=== PATIENT | female | born 2005 | race Caucasian/White ===

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

== ENCOUNTER 2024-08-20 14:06 | Emergency (ER) | payer OTHER ==
--- OUTSIDE RECORDS SUMMARY | 2024-08-20 14:09 | XMS REPORT | Continuity of Care Document ---
Author Name Unknown Address [address] [facility] [address] [place] [address] [facility] thconnect Address [address] [facility] [address] [place] [address] Care Team Providers Care Quality Control Name Role Phone [facility] Primary Care Physician UnavailSHANEKA Delgado Attending Clinician Unavailable Jina Bazzi CNM Attending Clinician JINA BAZZI Attending Clinician Rubens Escamilla Shaneka MARION Attending Clinician [phone] Doctor Unassigned, [place] Attending Clinician U Latasha Aquino MD Attending Clinician [phone] LATASHA LAMBERT Attending Clinician Dionne Jameson Attending Clinician + DIONNE PICKARD Attending Clinician Cecilia johnson Payers Payer Name Policy Type Policy Number Effective Date Expirati on Date Source Problems Condition Name Condition Details Condition Category Status Onset Date Resolution Date Last Treatment Date Treating Clinician Comments Source Flu vaccine refused Flu vaccine refused Disease Active 2023-08 00:00: 00 [facility] Allergies, Adverse Reactions, Alerts Allergy Name Allergy Type Status Severity Reaction(s) Onset Date Inactive Date Treating Clinician Comments Source NO KNOWN ALLERGIE S Drug Class Active [facility] Social History Social Habit Start Date Stop Date Quantity Comments Source Sexual orientation U [facility] Alcoholic beverage intake 2024-06-21 00:00:00 2024-06-21 00:00:00 Lifetime non-drinker (finding) [facility] Alcohol intake 2023-07-25 00:00:00 2023-07-25 00:00:00 Lifetime non-drinker (finding) [facility] Tobacco use and exposure 2023-07-03 00:00:00 2023-07-03 00:00:00 Smokeless tobacco non-user [facility] History of Social function 2023-07-03 00:00:00 2023-07-03 00:00:00 [facility] Sex assigned at 2005 00:00:00 2005 00:00:00 [facility] Smoking Status Start Date Stop Date Source Tobacco smoking consumption unknown [facility] Never smoked tobacco [facility] Medications Ordered Medication Name Filled Medication Name Start Date Stop Date Current Medication? Ordering Clinician Indication Dosage Frequency Signature (SIG) Comments Components Source norethindro ne (CRISTINA) 0.35 mg tablet 2023-08 00:00: 00 06-21 00:00 :00 No [id number] 1{tbl} TAKE 1 TABLET BY MOUTH EVERY DAY IN THE MORNING [facility] norethindro ne 0.35 mg tablet 03-26 00:00: 00 06-17 00:00 :00 No [id number] 1{tbl} Take 1 tablet by mouth in the morning. [facility] etonogestre L (NEXPLANON) implant 68 mg 2022-08 14:30: 00 07-25 14:00 :00 No [id number] 68mg [facility] Vital Signs Vital Name Observation Time Observation Value Comments S ed Systolic blood pressure 2024-06-21 13:38:00 121 mm[Hg] [facility] Diastolic blood pressure 2024-06-21 13:38:00 76 mm[Hg] [place] o [facility] Heart rate 2024-06-21 13:38:00 72 /min [facility] Body temperature 2024-06-21 13:38:00 36.61 [place] [facility] Respiratory rate 2024-06-21 13:38:00 17 /min [facility] Body height 2024-06-21 13:38:00 165.1 cm [facility] Body weight 2024-06-21 13:38:00 60.011 kg [facility] BMI 2024-06-21 13:38:00 22.02 kg/m2 [facility] Systolic blood pressure 2024-03-26 13:41:00 125 mm[Hg] [facility] Diastolic blood pressure 2024-03-26 13:41:00 82 mm[Hg] [facility] Heart rate 2024-03-26 13:41:00 78 /min [facility] Body temperature 2024-03-26 13:41:00 36.11 [place] [facility] Respiratory rate 2024-03-26 13:41:00 18 /min [facility] Body height 2024-03-26 13:41:00 165.1 cm [facility] Body weight 2024-03-26 13:41:00 57.425 kg [facility] BMI 2024-03-26 13:41:00 21.07 kg/m2 [facility] Systolic blood pressure 2023-07-25 13:31:00 114 mm[Hg] [facility] Diastolic blood pressure 2023-07-25 13:31:00 73 mm[Hg] [facility] Heart rate 2023-07-25 13:31:00 79 /min [facility] Body temperature 2023-07-25 13:31:00 36.78 [place] [facility] Body height 2023-07-25 13:31:00 165.1 cm [facility] Body weight 2023-07-25 13:31:00 52.708 kg [facility] BMI 2023-07-25 13:31:00 19.34 kg/m2 [facility] Body mass index (BMI) [Percentile] Per age and sex 2023-07-25 13:31:00 21.37 % [facility] Systolic blood pressure 2023-07-03 19:47:00 113 mm[Hg] [facility] Diastolic blood pressure 2023-07-03 19:47:00 77 mm[Hg] [facility] Heart rate 2023-07-03 19:47:00 89 /min [facility] Body temperature 2023-07-03 19:47:00 36.89 [place] [facility] Body height 2023-07-03 19:47:00 165.1 cm [facility] Body weight 2023-07-03 19:47:00 53.071 kg [facility] BMI 2023-07-03 19:47:00 19.47 kg/m2 [facility] Body mass index (BMI) [Percentile] Per age and sex 2023-07-03 19:47:00 23.26 % [facility] Procedures Procedure Date / Time Performed Performing Clinician Source CBC WITH DIFF 2024-03-26 14:49:00 Shaneka Escamilla [facility] PATIENT QUESTIONNAIRE 2023-07-28 06:01:00 Doctor Unassigned, [place] [facility] POCT TEST 2023-07-25 13:59:00 Latasha Anderson [facility] POCT TEST 2023-07-03 19:59:00 Dionne Monahan [facility] ASSIGNMENT OF BENEFITS 2023-07-03 19:21:13 Docto r Unassigned, [place] [facility] Encounters Start Date/Time End Date/Time Encounter Type Admission Type Attending Clinicians Care Facility Care Department Encounter ID Source 2024-06-21 08:15:00 2024-06-21 09:08:35 Office Visit Jina Bazzi [facility] TELEPHOTO INSTALLER [facility] [id number] [id number] [id number] [id number] [facility] 2024-06-21 08:15:00 2024-06-21 09:08:35 Outpatient R JINA BAZZI [facility] [id number] [facility] 2024-06-17 00:00:00 2024-06-17 11:16:12 Refill Shaneka Escamilla [facility] TELEPHOTO INSTALLER [facility] MATERNAL & CHILD [facility]ALTH [facility] [id number] [id number] [id number] [id number] [facility] 2024-03-27 00:00:00 2024-03-27 14:46:31 Telephone Shaneka Escamilla [facility] TELEPHOTO INSTALLER [facility] MATERNAL & CHILD [facility] [id number] [id number] [id number] [id number] [facility] 2024-03-26 08:30:00 2024-03-26 09:49:35 Outpatient R SHANEKA ESCAMILLA [facility] [id number] [facility] 2024-03-26 08:30:00 2024-03-26 09:49:35 Office Visit Shaneka Escamilla [facility] TELEPHOTO INSTALLER [facility] MATERNAL & CHILD [facility] [id number] [id number] [id number] [id number] [facility] 2023-07-28 00:00:00 2023-07-28 00:00:00 Orders Only Doctor Unassigned, [place] [facility] [id number] [id number] [id number] [id number] [facility] 2023-07-25 07:30:00 2023-07-25 08:00:00 Office Visit Latasha Lambert [facility] [place] [facility] [id number] [id number] [id number] [id number] [facility] 2023-07-25 07:30:00 2023-07-25 07:30:00 Outpatient R LATASHA LAMBERT [facility] [id number] [facility] 2023-07-25 00:00:00 2023-07-25 00:00:00 Telephone Latasha Lambert [facility] [id number] [id number] [id number] [id number] [facility] 2023-07-03 14:00:00 2023-07-03 14:20:46 Office Visit Evens yen [facility] E [facility] IN [facility] OD [id number] [id number] [id number] [id number] [facility] 2023-07-03 14:00:00 2023-07-03 14:20:46 Outpatient R EVENS Yen [facility] [id number] [facility] 2023-07-03 00:00:00 2023-07-03 00:00:00 Orders Only Doctor Unassigned, [place] [facility] [id number] [id number] [id number] [id number] [facility] Results Test Description Test Time Test Comments Results Result Co mments Source General acute hospital [id number] 14:00:00* Test Item Value Reference Range Interpretation Comme nts POCT PREG (test code = 1605) Negative On board controls acceptable with C Line (test code = 3574) Yes POCT PREG LOT # (test code = 3575) POCT PREG TEST DATE ( test code = 3576) [id number] 19:59:00* Test Item Value Reference Range Interpretation Comme nts POCT PREG (test code = 1605) Negative On board controls acceptable with C Line (test code = 3574) Yes POCT PREG LOT # (test code = 3575) POCT PREG TEST DATE ( test code = 3576) Lab Interpretation (test cod e = 30729-6) Normal General acute hospital [id number] 19:59:00* Test Item Value Reference Range Interpretation Comme nts POCT PREG (test code = 1605) Negative On board controls acceptable with C Line (test code = 3574) Yes POCT PREG LOT # (test code = 3575) POCT PREG TEST DATE ( test code = 3576) Lab Interpretation (test cod e = 62832-2) Normal [facility] [id number] 19:59:00* Test Item Value Reference Range Interpretation Comme nts POCT PREG (test code = 1605) Negative On board controls acceptable with C Line (test code = 3574) Yes POCT PREG LOT # (test code = 3575) POCT PREG TEST DATE ( test code = 3576) Lab Interpretation (test cod e = 84982-7) Normal [facility]
--- NOTE | 2024-08-20 15:10 | RAD REPORT ---
Procedure: Chest Pa And Lat (2 Views) HISTORY: Cough COMPARISON: none FINDINGS: The lungs appear clear of acute infiltrate. No significant pleural effusion noted. The heart is normal size. IMPRESSION: No acute abnormality is displayed.
[2024-08-20 16:48] LABS: Absolute Eosinophils 0.1 K/uL (0-0.5); Absolute Lymphocytes (CBC) 1.2 K/uL (0.7-4.9); Absolute Monocytes 0.5 K/uL (0.1-1.3); Absolute Neutrophil 4.5 K/uL (1.8-8.0); Basophils % 0.6 % (0-1.3); Eosinophils % 1.5 % (0-4.4); Hematocrit 50.4 % (36.0-45.0); Hemoglobin 16.9 g/dL (12.0-15.0); Lymphocytes % 18.7 % (15.3-44.8); MCH 29.4 pg (27.0-35.0); MCHC 33.5 g/dL (32.0-36.0); MCV 87.8 fL (80-100); MPV 9.4 fL (7.6-11.3); Monocytes % 8.5 % (3.3-12.3); Neutrophils % 70.7 % (41.7-73.7); Nucleated Red Blood Cells % 0.1 % (0-0); Platelets 217 thou/uL (152-406); RBC Red Blood Cell Count 5.74 M/uL (3.86-4.86); Red Cell Distribution Width 13.5 % (12.1-15.2)
[2024-08-20] MEDS ORDERED: KETOROLAC 30 MG/ML INJ ONE (16:50)
[2024-08-20 17:02] LABS: Anion Gap 8.1 mEq/L (5.0-15.0); Potassium 4.1 mEq/L (3.5-5.1)
[2024-08-20 17:25] LABS: SARS-CoV-2 Antigen CONTROL BLUE LINE VIS/BG OK; SARS-CoV-2 Antigen Rapid Res Negative (Negative)
--- NOTE | 2024-08-20 17:32 | ER ---
Nurse's Notes [facility] Name: Namrata Vega Age: 18 yrs Sex: Female : 2005 Arrival Date: 08/20/2024 Time: 14:06 Bed 26 Private MD: Diagnosis: Acute bronchitis, unspecified;Costochondritis Presentation: 08/20 14:16 Chief complaint: Chest pain and SOB x 2 days. Coronavirus screen: At this time, the hb client does not indicate any symptoms associated with coronavirus-19. Ebola Screen: No symptoms or risks identified at this time. Initial Sepsis Screen: Does the patient meet any 2 criteria? No. Patient's initial sepsis screen is negative. Does the patient have a suspected source of infection? No. Patient's initial sepsis screen is negative. Risk Assessment: Do you want to hurt yourself or someone else? Patient reports no desire to harm self or others. Onset of symptoms was August 19, 2024. 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 - Infectious Disease History:: Denies. - Social history:: Smoking status: Patient denies any tobacco usage or history of. Screenin:30 [facility] ED Fall Risk Assessment (Adult) History of falling in the last 3 months, me1 including since admission No falls in past 3 months (0 pts) Confusion or Disorientation No (0 pts) Intoxicated or Sedated No (0 pts) Impaired Gait No (0 pts) Mobility Assist Device Used No (0 pt) Altered Elimination No (0 pt) Score/Fall Risk Level 0 - 2 = Low Risk Maintained a safe environment, Provided non-skid footwear, Hourly rounding (assess needs \T\ fall precautionary measures) done. Abuse screen: Denies threats or abuse. Nutritional screening: No deficits noted. Tuberculosis screening: No symptoms or risk factors identified. Assessment: 16:30 General: Appears uncomfortable, ill, well groomed, well developed, well nourished, me1 Behavior is calm, cooperative, appropriate for age, Reports CP and SOB x 2 days w/cough and congestion. Pain: Complains of pain in chest Pain does not radiate. Pain currently is 4 out of 10 on a pain scale. Quality of pain is described as dull, Pain began gradually, 2-3 days ago. Is continuous. Neuro: Level of Consciousness is awake, alert, obeys commands, Oriented to person, place, time, situation, Appropriate for age. Cardiovascular: Patient's skin is warm and dry. Respiratory: Airway is patent Respiratory effort is even, unlabored, Respiratory pattern is regular, symmetrical. Respiratory: Reports shortness of breath on exertion cough that is persistent pain with cough since 2 days ago. GI: No signs and/or symptoms were reported involving the gastrointestinal system. : No signs and/or symptoms were reported regarding the genitourinary system. EENT: No signs and/or symptoms were reported regarding the EENT system. Derm: Skin is intact, is healthy with good turgor, Skin is pink, warm \T\ dry. Musculoskeletal: No signs and/or symptoms reported regarding the musculoskeletal system. Vital Signs: 14:16 BP 122 / 89; Pulse 111; Resp 18; Temp 98; Pulse Ox 100% ; Weight 58.97 kg; Height 5 ft. hb 5 in. ; Pain 2/10; 17:00 BP 120 / 81; Pulse 80; Resp 16; Pulse Ox 100% on R/A; me1 17:43 BP 121 / 88; Pulse 97; Resp 18; Temp 98.5; Pulse Ox 100% ; me1 14:16 Body Mass Index 21.63 (58.97 kg, 165.1 cm) - Percentile 49.5 % hb 14:16 Pain Scale: Adult hb ED Course: 14:09 Patient arrived in ED. mr 14:09 Marleni Box PA-C is PHCP. sb4 14:09 Pro Dillard MD is Attending Physician. sb4 14:17 Triage completed. hb 14:17 EKG done, by ED staff, reviewed by Marleni Box PA-C. hb 14:22 Radiology exam delayed due to test not completed at this time. md2 14:35 Chest Pa And Lat (2 Views) XRAY In Process Unspecified. EDMS 16:18 Mile Michaels, RN is Primary Nurse. me1 16:30 No provider procedures requiring assistance completed. Patient maintains SpO2 me1 saturation greater than 95% on room air. 16:30 Patient has correct armband on for positive identification. Bed in low position. Call me1 light in reach. Side rails up X2. Provided Education on: POC. Verbalized understanding.. Client placed on continuous cardiac and pulse oximetry monitoring. NIBP monitoring applied. Pulse ox on. NIBP on. 16:30 Arm band placed on Patient placed in an exam room. me1 16:38 Initial lab(s) drawn, by me, sent to lab. Inserted saline lock: 22 gauge in right em1 antecubital area, using aseptic technique. Blood collected. Flushed with 10 mL NS. 17:48 IV discontinued, intact, bleeding controlled, No redness/swelling at site. Pressure me1 dressing applied. Administered Medications: 16:51 Drug: Ketorolac IM 30 mg IM once Route: IM; Site: left deltoid; me1 16:56 Follow up: Response: No adverse reaction; Pain is decreased me1 Medication: 16:30 VIS not applicable for this client. me1 Outcome: 17:32 Discharge ordered by . sb4 17:48 Discharged to home ambulatory, me1 17:48 Condition: stable 17:48 Discharge instructions given to patient, Instructed on discharge instructions, follow up and referral plans. medication usage, Demonstrated understanding of instructions, follow-up care, medications, Prescriptions given X 2, 17:49 Patient left the ED. me1 Signatures: Dispatcher [employer] EDRI Sarah Gonzalez, Reg Reg Allen Kan em1 Jimena Arciniega, Marleni Lambert RN, PA-C PA-Brock [email or web address] Afsaneh Martinez md2 Mile Michaels, RN RN me1
--- NOTE | 2024-08-20 17:32 | EDPHYS ---
Physician Documentation [facility] Name: Namrata Vega Age: 18 yrs Sex: Female : 2005 Arrival Date: 08/20/2024 Time: 14:06 Bed 26 Private MD: ED Physician Pro Dillard HPI: 08/20 14:22 This 18 yrs old Female presents to ER via Ambulatory with complaints of Chest Pain. sb4 14:22 URI symptoms x 1 week, has improved. started having lower chest pain last night, has sb4 worsened. wants to make sure she isn't developing pneumonia. reports productive cough, bol[place]. no fever, nausea, vomiting, diarrhea. no leg swelling. was recently in [place]. 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 - Infectious Disease History:: Denies. - Social history:: Smoking status: Patient denies any tobacco usage or history of. ROS: 14:22 Constitutional: Negative for fever, chills, and weight loss, sb4 14:22 Cardiovascular: Positive for chest pain, 14:22 Respiratory: Positive for cough, "sounds productive", dyspnea on exertion, 14:22 All other systems are negative, Exam: 14:22 Constitutional: This is a well developed, well nourished patient who is awake, alert, sb4 and in no acute distress. Head/Face: Normocephalic, atraumatic. Eyes: Extra-ocular motions intact. Periorbital areas with no swelling, redness, or edema. ENT: Mucous membranes moist. Cardiovascular: Regular rate and rhythm with a normal S1 and S2. Respiratory: No increased work of breathing, no retractions or nasal flaring. Abdomen/GI: Soft, non-tender, no distension. Skin: Warm, dry with normal turgor. Normal color with no rashes, no lesions, and no evidence of cellulitis. Vital Signs: 14:16 BP 122 / 89; Pulse 111; Resp 18; Temp 98; Pulse Ox 100% ; Weight 58.97 kg; Height 5 ft. hb 5 in. ; Pain 2/10; 17:00 BP 120 / 81; Pulse 80; Resp 16; Pulse Ox 100% on R/A; me1 17:43 BP 121 / 88; Pulse 97; Resp 18; Temp 98.5; Pulse Ox 100% ; me1 14:16 Body Mass Index 21.63 (58.97 kg, 165.1 cm) - Percentile 49.5 % hb 14:16 Pain Scale: Adult hb MDM: 14:20 Medical Screening Exam initiated sb4 17:32 Data reviewed: vital signs, nurses notes, lab test result(s), radiologic studies, and sb4 as a result, I will discharge patient. Counseling: I had a detailed discussion with the patient and/or guardian regarding the historical points, exam findings, and any diagnostic results supporting the discharge/admit diagnosis, lab results, radiology results, to return to the emergency department if symptoms worsen or persist or if there are any questions or concerns that arise at home. 08/20 14:21 Order name: SARS RAPID; Complete Time: 17:26 sb4 08/20 14:21 Order name: Flu; Complete Time: 17:28 sb4 08/20 14:21 Order name: RSV; Complete Time: 17:27 sb4 08/20 14:21 Order name: Strep sb4 08/20 14:21 Order name: CBC with Diff; Complete Time: 16:51 sb4 08/20 14:21 Order name: BMP; Complete Time: 17:03 sb4 08/20 14:21 Order name: Chest Pa And Lat (2 Views) XRAY; Complete Time: 15:11 sb4 EC:21 Rate is 93 beats/min. Rhythm is regular, Normal Sinus Rhythm. MT interval is normal at sb4 114 msec. QRS interval is normal at 76 msec. QT interval is normal at 336 msec. No Q waves. T waves are Normal. No ST changes noted. Clinical impression: Normal ECG. Interpreted by me. Reviewed by me. Administered Medications: 16:51 Drug: Ketorolac IM 30 mg IM once Route: IM; Site: left deltoid; me1 16:56 Follow up: Response: No adverse reaction; Pain is decreased me1 Disposition Summary: 08/20/24 17:32 Discharge Ordered Notes: Location: Home sb4 Problem: new sb4 Symptoms: have improved sb4 Condition: Stable sb4 Diagnosis - Acute bronchitis, unspecified sb4 - Costochondritis sb4 Followup: sb4 - With: Emergency Department - When: As needed - Reason: Trouble breathing, Worsening of condition Discharge Instructions: - Discharge Summary Sheet sb4 - Acute Bronchitis, Adult sb4 - Costochondritis, [id number]-Wyoy sb4 Forms: - Patient Portal Instructions sb4 - Leadership Thank You Letter sb4 Prescriptions: - Tessalon Perles 100 mg Oral Capsule - take 1 capsule ORAL route every 8 hours As needed; 15 capsule; Refills: 0, sb4 Product Selection Permitted - Prednisone 20 mg Oral Tablet - take 1 tablet ORAL route every 12 hours for 5 days; 10 tablet; Refills: 0, sb4 Product Selection Permitted Addendum: 08/22/2024 12:38 Co-signature as Attending Physician, Pro Dillard MD I agree with the assessment and c mahmood plan of care. Signatures: Dispatcher [employer] Pro Neil MD MD cha Baxter, Heather, RN RN Marleni Sweeney PAEugenia PA-C sb4 Mile Michaels RN RN me1
[2024-08-20 18:13] VITALS: O2SAT 100
[2024-08-20 18:16] VITALS: BP 121/88; TEMP 98.5
--- NOTE | 2024-08-26 11:24 | EKG ---
Test Date: 2024-08-20 Test Time: 14:14:14 [employer] Professional: HB MEASUREMENT RESULTS: Intervals: Rate: 93 ID: [id number] QRSD: 76 QT: 336 QTc: 417 [place]: P: 25 ID: [id number] QRS: 90 T: 8 INTERPRETIVE STATEMENTS: Normal sinus rhythm Nonspecific T wave abnormality Abnormal ECG No previous ECG available for comparison Electronically Signed On 08-26-24 11:17:53 INFORMATION TECHNOLOGY SECURITY ANALYST by Pantera Tuttle
== END 2024-08-20 17:49 | disposition home or self-care (01) ==
LOC: ER 14:06
DX: M94.0 Chondrocostal junction syndrome [Tietze] (principal); J20.9 Acute bronchitis, unspecified
CPT/HCPCS: 36415; 71046; 80048; 85025; 87070; 87081; 87804; 87807; 87811; 93005; 96372; 99284